=== PATIENT | male | born 1950 | race Two or more races ===

== ENCOUNTER 2020-06-18 23:53 | Inpatient (IN) | payer OTHER ==
[~2020-06-18] VITALS: Ht 182.9 cm; Wt 90.7 kg
[2020-06-19] VITALS (16 sets, daily range): BP systolic 92–220; BP diastolic 34–81
[2020-06-19] MEDS ORDERED: ACCU-CHEK COMFORT CURVE STRIP VI ONE (00:15)
[2020-06-19 01:50] LABS: Albumin 1.5 g/dL (3.4-5.0); BUN/Creatinine Ratio 13.9; Calcium 7.5 mg/dL (8.5-10.1); Potassium 3.2 mmol/L (3.5-5.1)
[2020-06-19 01:59] LABS: Bilirubin, Total 0.7 mg/dL (0.2-1.0); Total Protein 5.2 g/dL (6.4-8.2)
[2020-06-19 02:10] LABS: Basophils # (auto) 0 10 ^3/uL (0-0.2); Eosinophils # (auto) 0 10 ^3/uL (0-0.8); Hematocrit 15.9 % (41.0-53.0); Lymphocytes # (auto) 0.1 10 ^3/uL (0.4-5.4); Mean Corpuscular Hgb Conc. 34.2 g/dL (32.0-36.0); Monocytes # (auto) 0 10 ^3/uL (0-1.3); Neutrophils # (auto) 0 10 ^3/uL (1.6-8.6)
[2020-06-19 02:15] LABS: Eosinophils % (auto) 8.8 % (0.0-7.0); Mean Corpuscular Hemoglobin 30.8 pg (28.0-32.0); Mean Corpuscular Volume 90.1 fL (80.0-100.0); Monocytes % (auto) 11.8 % (0.0-12.0); Neutrophils % (auto) 10.3 % (37.0-80.0); Nucleated Red Blood Cells % 2.2 %; Red Blood Cells 1.77 10^6/uL (4.5-5.90); Red Cell Distribution Width 18.9 % (11.8-14.3)
[2020-06-19] MEDS ORDERED: dilTIAZem 25 MG/5 ML VIAL IV ONE (02:15)
[2020-06-19 02:24] LABS: Lymphocytes % (auto) 69.1 % (10.0-50.0)
[2020-06-19 02:26] LABS: Hemoglobin 5.4 g/dL (13.5-17.5); Platelet Count (auto) 8 10^3/uL (140-450); White Blood Cell 0.1 10^3/uL (4.4-10.8)
[2020-06-19 02:26] LABS: INR 1.28 (0.9-1.15); Partial Thromboplastin Time 31.3 sec (23.0-31.2)
[2020-06-19 03:00] LABS: Lactic Acid w/Reflex 2.2 mmol/L (0.4-2.0)
[2020-06-19] MEDS ORDERED: ALBUMIN 25% 50 ML IV ONE (05:15)
[2020-06-19] MEDS ORDERED: SODIUM CHLORIDE 0.9% 1,000 ML IV ONE (05:15)
[2020-06-19] MEDS ORDERED: SODIUM CHLORIDE 0.9% 1,000 ML IV SCH ×3 (05:15→11:45)
[2020-06-19] MEDS ORDERED: NITROGLYCERIN 0.4 MG SL TAB SL PRN (05:15)
[2020-06-19] MEDS ORDERED: MORPHINE SULF INJ 2 MG/ML SYRINGE 1ML IV PRN (05:15)
[2020-06-19] MEDS ORDERED: ONDANSETRON HCL 4 MG/2 ML VIAL IV PRN (05:15)
[2020-06-19] MEDS ORDERED: metroNIDAZOLE 500MG/100ML 100 ML IV SCH (06:00)
[2020-06-19] MEDS ORDERED: cefTRIAXone 1GM/50ML D5W 50 ML IV SCH (09:00)
[2020-06-19] MEDS ORDERED: DIGOXIN (250MCG/ML) 2 ML AMPULE IV ONE ×2 (09:00→09:15)
[2020-06-19] MEDS ORDERED: AMIODARONE HCL 150 MG in D5W 5% 100 ML IV ONE (09:45)
[2020-06-19] MEDS ORDERED: AMIODARONE 450mg/250ml AE 250 ML IV SCH ×2 (09:54→15:54)
[2020-06-19] MEDS ORDERED: VANCOMYCIN PER PHARMACY 0 MG IV SCH (11:30)
[2020-06-19] MEDS ORDERED: ACETAMINOPHEN 325 MG TAB PO PRN (11:45)
[2020-06-19] MEDS ORDERED: NYSTATIN (MOUTH-THROAT) 500,000 UNITS/5 ML SUSP MT SCH ×2 (12:00→18:00)
[2020-06-19] MEDS ORDERED: CEFEPIME 1 GM in SODIUM CHL 0.9% 50 ML IV SCH (12:10)
[2020-06-19] MEDS ORDERED: ALPRAZolam 0.5 MG TAB PO PRN (13:15)
[2020-06-19] MEDS ORDERED: VANCOMYCIN 1GM/250ML 250 ML IV ONE (13:15)
[2020-06-19] MEDS ORDERED: NOREPINEPHRINE 8 MG/250ML KIT 250 ML IV SCH (13:39)
[2020-06-19] MEDS ORDERED: MIDAZOLAM DRIP 50 mg/50mL 50 ML IV SCH (13:43)
[2020-06-19] MEDS: ALBUMIN 25% 100 ML IV SCH ×2 (14:00→14:35)
[2020-06-19 14:22] LABS: Basophils # (auto) 0 10 ^3/uL (0-0.2); Eosinophils # (auto) 0 10 ^3/uL (0-0.8); Lymphocytes # (auto) 0.2 10 ^3/uL (0.4-5.4); Mean Corpuscular Hgb Conc. 30.5 g/dL (32.0-36.0); Monocytes # (auto) 0 10 ^3/uL (0-1.3); Neutrophils # (auto) 0 10 ^3/uL (1.6-8.6)
[2020-06-19 14:24] LABS: Eosinophils % (auto) 1.4 % (0.0-7.0); Hematocrit 25.7 % (41.0-53.0); Hemoglobin 7.8 g/dL (13.5-17.5); Mean Corpuscular Hemoglobin 28.8 pg (28.0-32.0); Mean Corpuscular Volume 94.5 fL (80.0-100.0); Monocytes % (auto) 3.6 % (0.0-12.0); Neutrophils % (auto) 2.4 % (37.0-80.0); Red Blood Cells 2.72 10^6/uL (4.5-5.90); Red Cell Distribution Width 18.9 % (11.8-14.3)
[2020-06-19] MEDS ORDERED: CALCIUM CHLOR(10%) 100MG/ML 10ML SYRINGE IV ONE (14:49)
[2020-06-19] MEDS ORDERED: DEXTROSE (50%) 50ML SYRG IV ONE (14:49)
[2020-06-19] MEDS ORDERED: EPINEPHrine HCL 1 MG/10 ML SYRG IV ONE (14:49)
[2020-06-19] MEDS ORDERED: SODIUM BICARBONATE 8.4% INJ 50ML SYRINGE IV ONE (14:49)
[2020-06-19 15:12] LABS: Lymphocytes % (auto) 92.6 % (10.0-50.0); Nucleated Red Blood Cells % 6.1 %
[2020-06-19 15:19] LABS: Platelet Count (auto) 15 10^3/uL (140-450); White Blood Cell 0.2 10^3/uL (4.4-10.8)
[2020-06-20] MEDS ORDERED: FILGRASTIM(TBO) 480 MCG/0.8 ML SYRG SC SCH (10:00)
[2020-06-20 11:13] LABS: Lactic Acid w/Reflex 15.3 mmol/L (0.4-2.0)
== END 2020-06-19 14:50 | disposition expired | DRG 871 ==
LOC: ER 23:53 → TELE 23:54
PROVIDERS: ADMIT Nurse Practitioner; ATTEND Nurse Practitioner
PROC: 0BH17EZ Insertion of Endotracheal Airway into Trachea, Via Natural or Artificial Opening (ICD-10-PCS; principal; 2020-06-19)
PROC: 5A1935Z Respiratory Ventilation, Less than 24 Consecutive Hours (ICD-10-PCS; 2020-06-19)
PROC: 30233R1 Transfusion of Nonautologous Platelets into Peripheral Vein, Percutaneous Approach (ICD-10-PCS; 2020-06-19)
PROC: 30233N1 Transfusion of Nonautologous Red Blood Cells into Peripheral Vein, Percutaneous Approach (ICD-10-PCS; 2020-06-19)
PROC: 5A12012 Performance of Cardiac Output, Single, Manual (ICD-10-PCS; 2020-06-19)
DX: A41.9 Sepsis, unspecified organism (principal); G93.41 Metabolic encephalopathy; J96.01 Acute respiratory failure with hypoxia; D68.9 Coagulation defect, unspecified; I48.20 Chronic atrial fibrillation, unspecified; C78.7 Secondary malignant neoplasm of liver and intrahepatic bile duct; E87.2 Acidosis; N17.9 Acute kidney failure, unspecified; R65.20 Severe sepsis without septic shock; K52.9 Noninfective gastroenteritis and colitis, unspecified; D69.6 Thrombocytopenia, unspecified; D63.0 Anemia in neoplastic disease; D70.1 Agranulocytosis secondary to cancer chemotherapy; E86.0 Dehydration; E87.6 Hypokalemia; F17.200 Nicotine dependence, unspecified, uncomplicated; I10 Essential (primary) hypertension; T45.1X5A Adverse effect of antineoplastic and immunosuppressive drugs, initial encounter; Z20.828 Contact with and (suspected) exposure to other viral communicable diseases; Z85.038 Personal history of other malignant neoplasm of large intestine; Z85.05 Personal history of malignant neoplasm of liver; I46.9 Cardiac arrest, cause unspecified
CPT/HCPCS: 36415; 36600; 70450; 71045; 74176; 80053; 82140; 82728; 82805; 83605; 83880; 84484; 85025; 85610; 85730; 86850; 86900; 86901; 86920; 87040; 87070; 87077; 87186; 87205; 94002; G0378; J2250; J3490; J7060; P9047